=== PATIENT | male | born 1955 | race Caucasian/White ===

== ENCOUNTER → 2018-06-03 | Outpatient (CLI) | payer OTHER, MEDICARE ==
--- NOTE | 2018-06-03 12:53 | KCIC ---
MR of the left thumb HISTORY: Left thumb trauma 3 weeks ago. TECHNIQUE: Routine multiplanar sequences are obtained. FINDINGS: Dislocation of the first MTP joint. The proximal first phalanx is displaced anteriorly. There is moderate to severe motion degradation despite repeated attempts of scanning. Marrow edema/contusion at the first MTP joint. No large displaced fracture, but difficult to exclude small fractures along the joint. Although difficult to visualize, there are appear to be tears of the radial and ulnar collateral ligaments at the first MP joint. The flexor tendon appears intact. However, there is likely a tear of the A1 padmini related to the dislocation. The extensor tendon of the thumb is difficult to visualize but no definite disruption.. There is separation of the extensor tendon from the proximal first phalanx due to the dislocation. No large fluid collection is seen. IMPRESSION: 1. First MP joint dislocation. 2. Severe motion degradation on the images. Presumed tears of the radial and ulnar collateral ligaments of the first MCP joint as well as the A1 padmini. No definite flexor or extensor tendon rupture. Electronically signed by: Wali Ochoa MD (06/03/2018 12:50 PM) [facility]
== END | disposition home or self-care (01) ==
LOC: KCIC MRI 10:27
DX: S63.642A Sprain of metacarpophalangeal joint of left thumb, initial encounter (principal); S63.115A Dislocation of metacarpophalangeal joint of left thumb, initial encounter; X58.XXXA Exposure to other specified factors, initial encounter; Y93.89 Activity, other specified; Y92.89 Other specified places as the place of occurrence of the external cause; Y99.8 Other external cause status
CPT/HCPCS: 73218